=== PATIENT | male | born 1970 | race Caucasian/White ===

== ENCOUNTER 2017-05-28 14:21 | Emergency (ER) | payer OTHER ==
[2017-05-28 14:57] VITALS: BP 123/76
== END 2017-05-28 17:34 | disposition home or self-care (01) ==
LOC: ED 14:21
DX: S09.90XA Unspecified injury of head, initial encounter (principal); W20.8XXA Other cause of strike by thrown, projected or falling object, initial encounter; Y93.H3 Activity, building and construction; Y92.89 Other specified places as the place of occurrence of the external cause; Y99.8 Other external cause status

== ENCOUNTER 2017-06-13 19:22 | Emergency (ER) | payer SELFPAY ==
[2017-06-13 20:52] VITALS: BP 126/84
== END 2017-06-13 20:52 | disposition home or self-care (01) ==
LOC: ED 19:22
DX: M25.511 Pain in right shoulder (principal)
CPT/HCPCS: J1885

== ENCOUNTER 2017-06-16 12:34 | Emergency (ER) | payer MEDICAID ==
[2017-06-16 16:26] VITALS: BP 120/75
== END 2017-06-16 16:26 | disposition home or self-care (01) ==
LOC: ED 12:34
DX: S46.911A Strain of unspecified muscle, fascia and tendon at shoulder and upper arm level, right arm, initial encounter (principal); X58.XXXA Exposure to other specified factors, initial encounter; Y93.89 Activity, other specified; Y92.89 Other specified places as the place of occurrence of the external cause; Y99.8 Other external cause status
CPT/HCPCS: J1170; J1885; Q0162

== ENCOUNTER 2018-03-04 07:22 | Emergency (ER) | payer SELFPAY ==
[~2018-03-04] VITALS: Ht 172.7 cm; Wt 73.0 kg
[2018-03-04 07:34] VITALS: Ht 172.7 cm; Wt 73.0 kg
[2018-03-04 08:24] LABS: BASOPHIL % 0.1 % (0-2); PLATELET COUNT 245 x10^3mcL (130-400); RED CELL DISTRIBUTION WIDTH 13.2 % (11.5-14.5)
[2018-03-04 08:31] LABS: CALCIUM 8.9 mg/dL (8.5-10.1); CARBON DIOXIDE 27.3 mmol/L (21-32); CHLORIDE SERUM 103 mmol/L (98-107); GFR1 > 60 mL/min; GLUCOSE SERUM 132 mg/dL (74-106); POTASSIUM SERUM 3.7 mmol/L (3.5-5.1); SODIUM SERUM 136 mmol/L (136-145)
[2018-03-04 08:36] LABS: ALBUMIN 3.9 g/dL (3.4-5.0); ALKALINE PHOSPHATASE 99 U/L (46-116); ALT/SGPT 19 U/L (16-63); AST/SGOT 20 U/L (15-37); BILIRUBIN TOTAL 0.48 mg/dL (0.20-1.00); TOTAL PROTEIN, SERUM 8.2 g/dL (6.4-8.2)
[2018-03-04 09:10] LABS: microscopic required? NO
[2018-03-04 09:45] LABS: urine erythrocyte NEGATIVE (NEGATIVE)
[2018-03-04 10:40] VITALS: BP 115/83
== END 2018-03-04 10:40 | disposition home or self-care (01) ==
LOC: ED 07:22
PROVIDERS: Emergency Medicine
DX: R42 Dizziness and giddiness (principal); R20.2 Paresthesia of skin; R11.0 Nausea
CPT/HCPCS: 36415; Q0162